=== PATIENT | female | born 1990 | race Caucasian/White ===

== ENCOUNTER 2021-02-24 17:21 | Emergency (ER) | payer OTHER ==
[~2021-02-24] VITALS: Ht 177.8 cm; Wt 80.0 kg
--- NOTE | 2021-02-24 18:38 | PHYS DOC ---
Past History Past Medical History: No Pertinent History Past Surgical History: No Surgical History Alcohol Use: None Adult General Chief Complaint Chief Complaint: LOWER EXTREMITY SWELLING HPI HPI Patient is a 30-year-old female, otherwise healthy at 30 weeks gestation who presents with a chief complaint of concern for lower extremity blood clot. States she has had some pain and swelling in her right lower extremity for 4 days. States is never had anything like this before. States she called her primary care physician was directed to the emergency department to be sure she does not have a blood clot. Denies any recent traumas, travel, illnesses, fevers, chest pain, shortness of breath. Denies any history of VTE. States that it is tender down around her right lower extremity, 3 out of 10, dull and achy in nature and thinks it is a little swollen compared to her left leg. Review of Systems Review of Systems Review of systems otherwise unremarkable except noted in HPI Allergies Allergies Allergies Coded Allergies Type Severity Reaction Last Updated Verified adhesive tape Allergy Unknown 02/24/21 Yes Uncoded Allergies Type Severity Reaction Last Updated Verified ALL ANTIBIOTICS EXCEPT PENICILLINS Allergy Unknown 02/24/21 Physical Exam Physical Exam Constitutional: Well developed, well nourished, no acute distress, non-toxic appearance. [] Cardiovascular:Heart rate regular rhythm, no murmur [] Lungs & Thorax: Bilateral breath sounds clear to auscultation [] Abdomen: Gravid soft, no tenderness, no masses, no pulsatile masses. [] Skin: Warm, dry, no erythema, no rash. [] Back: No tenderness, no CVA tenderness. [] Extremities: Mild tenderness and very mild swelling about the lateral distal right lower extremity with no erythema or warmth. Neurovascular exam intact Neurologic: Alert and oriented X 3, no focal deficits noted. [] Psychologic: Affect normal, judgement normal, mood normal. [] Current Patient Data Vital Signs Vital Signs Date Time Temp Pulse Resp B/P (MAP) Pulse Ox O2 Delivery O2 Flow Rate FiO2 02/24/21 17:35 97.5 86 20 129/86 (100) 100 Room Air EKG EKG [] Radiology/Procedures Radiology/Procedures [] Right lower extremity venous duplex Doppler ultrasound HISTORY: Right leg pain and swelling. FINDINGS: No DVT evident by grayscale sonography with compressibility, patent color Doppler blood flow and augmentation of blood flow the right common femoral vein, profunda femoral vein, superficial femoral vein and popliteal vein. No DVT evident with patent color Doppler blood flow the posterior tibial and peroneal veins in the calf. IMPRESSION: Negative right leg for DVT. Electronically signed by: Scott Ayala MD (02/24/2021 7:52 PM) [facility] Heart Score C/O Chest Pain: No Risk Factors: Risk Factors: DM, Current or recent (<one month) smoker, HTN, HLP, family history of CAD, obesity. Risk Scores: Risk Factors: DM, Current or recent (<one month) smoker, HTN, HLP, family history of CAD, obesity. Course & Med Decision Making Course & Med Decision Making Patient is a 30-year-old female, 30 weeks who presents with concern for blood clot at the recommendation of her PCP Vital signs not concerning. Physical exam noted above. Laboratory analysis not concerning. DVT ultrasound negative. Discussed all findings with patient. Gave recommendations for pain control at home. Advised to follow-up tomorrow with primary care physician. Gave return precautions to the ED. Patient grateful, verbalized understanding and agreed with plan of discharge. [] Dragon Disclaimer Dragon Disclaimer This electronic medical record was generated, in whole or in part, using a voice recognition dictation system. Departure Departure: Impression: Primary Impression: Right leg pain Disposition: HOME / SELF CARE / HOMELESS Condition: GOOD Referrals: NON,STAFF (PCP) Patient Instructions: Leg Cramps Additional Instructions: Please read all the attached information carefully. Your labs and imaging today were reassuring with no evidence of DVT. Please call your primary care physician first thing in the morning to update on your ED visit. Please come back to the ED with new or concerning symptoms as discussed. SANDRA ESPINAL MD February 24, 2021 18:38
[2021-02-24 19:24] LABS: BASO % 0 % (0-3); CALCIUM 8.6 mg/dL (8.5-10.1); CREATININE 0.4 mg/dL (0.6-1.0); EOS # 0.1 x10^3/uL (0.0-0.7); EOS % 1 % (0-3); HEMATOCRIT 31.3 % (36.0-47.0); HEMOGLOBIN 10.4 g/dL (12.0-15.5); LYMPH # 1.8 x10^3/uL (1.0-4.8); LYMPH % 16 % (24-48); MEAN CORPUSCULAR HEMOGLOBIN 29 pg (25-35); MEAN CORPUSCULAR HGB CONC 33 g/dL (31-37); MEAN CORPUSCULAR VOLUME 87 fL (79-100); MONO # 0.7 x10^3/uL (0.0-1.1); MONO % 6 % (0-9); NEUT # 9.1 x10^3uL (1.8-7.7); NEUT % 77 % (31-73); PLATELET COUNT 213 x10^3/uL (140-400); POTASSIUM 3.8 mmol/L (3.5-5.1); RED BLOOD COUNT 3.62 x10^6/uL (3.50-5.40); RED CELL DISTRIBUTION WIDTH 13.6 % (11.5-14.5); WHITE BLOOD COUNT 11.8 x10^3/uL (4.0-11.0)
--- NOTE | 2021-02-24 19:54 | RAD ---
Right lower extremity venous duplex Doppler ultrasound HISTORY: Right leg pain and swelling. FINDINGS: No DVT evident by grayscale sonography with compressibility, patent color Doppler blood jay w and augmentation of blood flow the right common femoral vein, profunda femoral vein, superficial fe moral vein and popliteal vein. No DVT evident with patent color Doppler blood flow the posterior tibi al and peroneal veins in the calf. IMPRESSION: Negative right leg for DVT. Electronically signed by: Scott Ayala MD (02/24/2021 7:52 PM) [facility]
[2021-02-24 20:05] VITALS: BP 129/78
== END 2021-02-24 20:10 | disposition home or self-care (01) ==
LOC: ER 17:21
DX: O26.893 Other specified pregnancy related conditions, third trimester (principal); M79.604 Pain in right leg; Z3A.30 30 weeks gestation of pregnancy
CPT/HCPCS: 36415; 80048; 85025; 93971; 99284

== ENCOUNTER 2021-05-15 18:53 | Emergency (ER) | payer OTHER ==
[~2021-05-15] VITALS: Ht 177.8 cm; Wt 80.0 kg
--- NOTE | 2021-05-15 19:22 | PHYS DOC ---
Past History Past Medical History: No Pertinent History Past Surgical History: No Surgical History Alcohol Use: None General Adult EDM: Chief Complaint: ASPIRATION HPI: HPI: 31-year-old female presents with concern for aspiration. Patient was drinking something last night and she took a large drink to finish it off and she choked on the substance. She spit it out, but had a wet cough through the night. She has a dry cough intermittently today but also has a right sided chest heaviness with breathing. She called the [facility] line and they advised her to come and get an x-ray to rule out retained foreign object or pneumonia. Patient denies fever or chills. She has no other complaints this time. Review of Systems: Review of Systems: Constitutional: Denies fever or chills Eyes: Denies change in visual acuity HENT: Denies nasal congestion or sore throat Respiratory: Cough without Cardiovascular: Right-sided chest discomfort with breathing GI: Denies abdominal pain, nausea, vomiting, bloody stools or diarrhea : Denies dysuria Musculoskeletal: Denies back pain or joint pain Integument: Denies rash Neurologic: Denies headache, focal weakness or sensory changes Endocrine: Denies polyuria or polydipsia Lymphatic: Denies swollen glands Psychiatric: Denies depression or anxiety Allergies: Allergies: Allergies Coded Allergies Type Severity Reaction Last Updated Verified adhesive tape Allergy Unknown 02/24/21 Yes Uncoded Allergies Type Severity Reaction Last Updated Verified ALL ANTIBIOTICS EXCEPT PENICILLINS Allergy Unknown 02/24/21 Physical Exam: PE: Constitutional: Well developed, well nourished, no acute distress, non-toxic appearance. [] HENT: Normocephalic, atraumatic, bilateral external ears normal, oropharynx moist, no oral exudates, nose normal. [] Eyes: PERRLA, EOMI, conjunctiva normal, no discharge. [] Neck: Normal range of motion, no tenderness, supple, no stridor. [] Cardiovascular: Heart rate regular rhythm, no murmur [] Lungs & Thorax: Bilateral breath sounds clear to auscultation [] Abdomen: Bowel sounds normal, soft, no tenderness, no masses, no pulsatile masses. [] Skin: Warm, dry, no erythema, no rash. [] Back: No tenderness, no CVA tenderness. [] Extremities: No tenderness, no cyanosis, no clubbing, ROM intact, no edema. [] Neurologic: Alert and oriented X 3, normal motor function, normal sensory func tion, no focal deficits noted. [] Psychologic: Affect normal, judgement normal, mood normal. [] EKG: EKG: [] Radiology/Procedures: Radiology/Procedures: [] Impressions: XR CHEST 2V History: Possible aspiration. Comparison: None. Technique: PA and lateral chest radiographs. Findings: The lungs are adequately and symmectrically inflated. No airspace consolidation, pleural effusion or pneumothorax. The cardiomediastinal silhoutte and pulmonary vasculature are within normal limits. Soft tissues and osseous structures are unremarkable. Impression: 1. No acute cardiopulmonary process. Electronically signed by: Fer Mejia MD (05/15/2021 7:49 PM) [facility] DICTATED AND SIGNED BY: FER MEJIA MD DATE: 05/15/211948 CC: LACI NAVA DO; KENTRELL WOLFE DO ~MTH0 0 Heart Score: C/O Chest Pain: N/A Risk Factors: Risk Factors: DM, Current or recent (<one month) smoker, HTN, HLP, family history of CAD, obesity. Risk Scores: Score 0 - 3: 2.5% MACE over next 6 weeks - Discharge Home Score 4 - 6: 20.3% MACE over next 6 weeks - Admit for Clinical Observation Score 7 - 10: 72.7% MACE over next 6 weeks - Early Invasive Strategies Course & Med Decision Making: Course & Med Decision Making Pertinent Labs and Imaging studies reviewed. (See chart for details) The patient's chest pain appears to be clearly noncardiac related. We will evaluate her for pulmonary concerns. The patient's chest x-ray is negative for acute findings. I suspect she had partial aspiration and has irritated her upper airway. This should improve on its own without further intervention. She is stable for discharge at this time. If her condition worsens in any way or she develops a fever she will return to the emergency room. [] Dragon Disclaimer: Dragon Disclaimer: This electronic medical record was generated, in whole or in part, using a voice recognition dictation system. Departure Departure: Impression: Primary Impression: Aspiration into respiratory tract Disposition: HOME / SELF CARE / HOMELESS Condition: STABLE Referrals: KENTRELL WOLFE DO (PCP) Patient Instructions: Choking, Adult NAVA,LACI DO May 15, 2021 19:22
[2021-05-15 19:35] VITALS: BP 155/100
--- NOTE | 2021-05-15 19:51 | RAD ---
XR CHEST 2V History: Possible aspiration. Comparison: None. Technique: PA and lateral chest radiographs. Findings: The lungs are adequately and symmectrically inflated. No airspace consolidation, pleural effusion or pneumothorax. The cardiomediastinal silhoutte and pulmonary vasculature are within normal limits. Sof t tissues and osseous structures are unremarkable. Impression: 1. No acute cardiopulmonary process. Electronically signed by: Fer Mejia MD (05/15/2021 7:49 PM) [facility]
== END 2021-05-15 20:04 | disposition home or self-care (01) ==
LOC: ER 18:53
DX: T17.820A Food in other parts of respiratory tract causing asphyxiation, initial encounter (principal); Z88.8 Allergy status to other drugs, medicaments and biological substances; X58.XXXA Exposure to other specified factors, initial encounter; Y93.89 Activity, other specified; Y92.89 Other specified places as the place of occurrence of the external cause; Y99.8 Other external cause status
CPT/HCPCS: 71046; 99283